=== PATIENT | female | born 1960 | race Caucasian/White ===

== ENCOUNTER 2017-01-11 19:55 | Emergency (ER) | payer OTHER ==
--- NOTE | 2017-01-12 00:11 | ER ---
ADMIT: 01/11/2017 RM/LOC: [facility] MR#: [id number] [id number] ELBA GAMINO [address] [place] [address] Emergency Room Report SEX: F AGE: 56 : 1960 DATE: 01/11/2017 TIME: 1954 hours. Please refer to my T-sheet for complete H and P. HISTORY OF PRESENT ILLNESS: Briefly, the patient is a 56-year-old, who comes in with chest pain 5-6 episodes today. They last less than 1 or 2 minutes. She has had more indigestion recently because she had a steroid injection. She has a history of reflux. Never had a workup. Never had heart problems. Denies any leg pain. She does not smoke. PHYSICAL EXAMINATION: VITAL SIGNS: Her blood pressure is 171/75, pulse 69, respirations 18, temp 98, sat 100%. GENERAL: No acute distress. HEENT: Grossly normal. LUNGS: Clear. HEART: Regular. ABDOMEN: Soft. SKIN: No rash. NEUROLOGIC: Alert and oriented, nonfocal. EMERGENCY DEPARTMENT COURSE: EKG was sinus rhythm, rate 68, no changes. Chest x-ray was negative. CBC normal. Chemistries normal. Troponin negative. I gave her a GI cocktail, Zofran. She was having no recurrence of her symptoms. I talked to Dr. Chin. They will follow her up for an outpatient stress. ASSESSMENT: 1. Chest pain, atypical. 2. Reflux. PLAN: I am going to add Carafate. Follow up with [facility]. Call tomorrow for an appointment. Return if worse. Take a baby aspirin a day. Tye Rosa MD/ danae JOB #: [id number] CC: Tye Rosa MD, Attending Physician Smiley Hanson APRN, Family Physician
== END 2017-01-11 21:23 | disposition home or self-care (01) ==
LOC: ER 19:55
DX: K21.9 Gastro-esophageal reflux disease without esophagitis (principal); E78.00 Pure hypercholesterolemia, unspecified; E03.9 Hypothyroidism, unspecified; Z90.710 Acquired absence of both cervix and uterus; Z79.899 Other long term (current) drug therapy

== ENCOUNTER → 2017-01-18 | Outpatient (CLI) | payer OTHER | END | disposition home or self-care (01) | LOC: RAD.S 09:12 | DX: Z12.31 Encounter for screening mammogram for malignant neoplasm of breast (principal) ==